=== PATIENT | female | born 1970 | race Caucasian/White ===

== ENCOUNTER 2021-04-24 20:01 | Inpatient (IN) | payer BC ==
[2021-04-24] MEDS ORDERED: Dexamethasone 10 MG/ML VIAL ONE (20:42)
[2021-04-24 20:54] LABS: #Monocytes 0.6 10x3/uL (0.0-1.1); #Neutrophils 5.7 10x3/uL (1.5-8.4); %Basophils 0.5 % (0.0-2.0); %Eosinophils 0.4 % (0.0-6.0); %Lymphocytes 14.1 % (18.0-47.0); %Monocytes 8.1 % (0.0-10.0); %Neutrophils 73.8 % (40.0-75.0); Hemoglobin 15.8 g/dL (12.0-15.5); Mean Corpuscular HGB CONC 33.3 g/dL (32.0-36.0); Mean Corpuscular Hemoglobin 30.1 pg (27.0-33.0); Mean Corpuscular Volume 90.3 fl (81.6-98.3); Mean Platelet Volume 8.8 fl (7.4-10.4); Platelet Count 459 10x3/uL (150-450); RBC Distribution Width 13.3 % (11.5-14.5); Red Blood Cell (RBC) Count 5.25 10x6/uL (3.90-5.03); White Blood Cell (WBC) Count 7.7 10x3/uL (3.5-10.5)
[2021-04-24 21:10] LABS: ALT (SGPT) 115 U/L (8-55); AST (SGOT) 89 U/L (5-34); Albumin 3.7 g/dL (3.5-5.0); Alkaline Phosphatase 205 U/L (40-110); Anion Gap 19 mmol/L (10-20); BUN (Urea Nitrogen) 7 mg/dL (9.8-20.1); Bilirubin, Total 1.2 mg/dL (0.2-1.2); Calc. Creatinine Clearance 0 mL/min (70-130); Calcium 9.1 mg/dL (7.8-10.44); Carbon Dioxide 25 mmol/L (22-29); Chloride 99 mmol/L (98-107); Glucose 146 mg/dL (70-105); Potassium 3.6 mmol/L (3.5-5.1); Protein, Total 6.7 g/dL (6.0-8.3); Sodium 139 mmol/L (136-145)
[2021-04-24] MEDS ORDERED: cefTRIAXone\\ROCEPHIN 1 GM VIAL ONE (21:11)
[2021-04-24] MEDS ORDERED: HYDROcodone/Acetaminophen 5/325 mg Tablet PO PRN (22:43)
[2021-04-24] MEDS ORDERED: Dextrose 50% Abboject 50 ML SYRINGE SLOW IVP PRN (22:43)
[2021-04-24] MEDS ORDERED: Guaifenesin DM 100-10/5 ML UDCUP PO PRN (22:43)
[2021-04-24] MEDS ORDERED: Senokot S 8.6-50 MG TAB PO PRN (22:43)
[2021-04-24] MEDS ORDERED: Dextrose 5% in Water 1,000 ML IV PRN (22:43)
[2021-04-24] MEDS ORDERED: Calcium Carbonate 500 MG ChewTAB PO PRN (22:43)
[2021-04-24] MEDS ORDERED: Ventolin HFA Inhaler 60 PUFF INHALER INH PRN (22:46)
[2021-04-25] MEDS ORDERED: Sodium Chloride 0.9% 1,000 ML IV SCH (00:15)
[2021-04-25] MEDS: HumaLOG 300 UNITS/3 ML VIAL SC PRN ×4 (00:27→21:27)
[2021-04-25] MEDS: Acetaminophen 325 MG TAB PO PRN ×3 (00:29→21:01)
[2021-04-25 00:51] VITALS: BMI 40.7
[2021-04-25] MEDS ORDERED: FLU VACC QS2021-22(6MOS UP)/PF 60 MCG/0.5 ML SYRINGE IM ONE (01:30)
[2021-04-25 05:51] LABS: Legionella Urinary Ag Negative (Negative); Strep pneumo Urine Ag NEGATIVE (NEGATIVE)
[2021-04-25 05:54] LABS: #Monocytes 0.2 10x3/uL (0.0-1.1); #Neutrophils 4.4 10x3/uL (1.5-8.4); %Basophils 0.5 % (0.0-2.0); %Lymphocytes 13.4 % (18.0-47.0); %Monocytes 2.7 % (0.0-10.0); %Neutrophils 79.6 % (40.0-75.0); Hemoglobin 14.8 g/dL (12.0-15.5); Mean Corpuscular Hemoglobin 30.2 pg (27.0-33.0); Mean Corpuscular Volume 91.6 fl (81.6-98.3); Mean Platelet Volume 8.8 fl (7.4-10.4); Platelet Count 442 10x3/uL (150-450); RBC Distribution Width 13.2 % (11.5-14.5); White Blood Cell (WBC) Count 5.5 10x3/uL (3.5-10.5)
[2021-04-25 06:05] LABS: ALT (SGPT) 107 U/L (8-55); AST (SGOT) 79 U/L (5-34); Albumin 3.3 g/dL (3.5-5.0); Alkaline Phosphatase 190 U/L (40-110); Anion Gap 19 mmol/L (10-20); BUN (Urea Nitrogen) 8 mg/dL (9.8-20.1); Bilirubin, Total 0.9 mg/dL (0.2-1.2); CRP (Inflammatory) 21.48 mg/dL (= or < 0.5); Calc. Creatinine Clearance 195 mL/min (70-130); Calcium 8.8 mg/dL (7.8-10.44); Carbon Dioxide 21 mmol/L (22-29); Chloride 103 mmol/L (98-107); Globulin 2.8 g/dL (2.4-3.5); Glucose 245 mg/dL (70-105); Potassium 3.7 mmol/L (3.5-5.1); Protein, Total 6.1 g/dL (6.0-8.3); Sodium 139 mmol/L (136-145)
[2021-04-25] MEDS: Carvedilol 3.125 MG TAB PO SCH ×2 (09:27→16:21)
[2021-04-25] MEDS: Cholecalciferol 1,000 UNITS (25 MCG) TAB PO SCH (09:27)
[2021-04-25] MEDS: Aspirin 81 mg Enteric Coated Tablet PO SCH (09:27)
[2021-04-25] MEDS: Dexamethasone 4 mg/ml Vial SLOW IVP SCH (09:27)
[2021-04-25] MEDS: Zinc Gluconate 50 MG TAB PO SCH (09:27)
[2021-04-25] MEDS: Ascorbic Acid 500 mg Chewable Tablet PO SCH (09:27)
[2021-04-25] MEDS: Benzonatate 100 MG CAP PO SCH ×3 (09:27→21:01)
[2021-04-25] MEDS: Enoxaparin Sodium 40 MG/0.4 ML SYRINGE SC SCH (09:27)
[2021-04-25] MEDS: Ondansetron PF 4 MG/2 ML Vial IVP PRN ×2 (09:28→16:21)
[2021-04-25 15:47] LABS: Hemoglobin A1c 6.4 % (4.0-6.0)
[2021-04-25] MEDS: guaiFENesin ER 600 MG TAB PO SCH (21:01)
[2021-04-26] MEDS: HumaLOG 300 UNITS/3 ML VIAL SC PRN ×3 (05:01→20:49)
[2021-04-26 05:55] LABS: Hemoglobin 13.8 g/dL (12.0-15.5); Mean Corpuscular HGB CONC 33.7 g/dL (32.0-36.0); Mean Corpuscular Hemoglobin 30.5 pg (27.0-33.0); Mean Corpuscular Volume 90.5 fl (81.6-98.3); Platelet Count 489 10x3/uL (150-450); RBC Distribution Width 13.2 % (11.5-14.5); Red Blood Cell (RBC) Count 4.52 10x6/uL (3.90-5.03); White Blood Cell (WBC) Count 11.2 10x3/uL (3.5-10.5)
[2021-04-26 06:00] LABS: ALT (SGPT) 91 U/L (8-55); AST (SGOT) 47 U/L (5-34); Albumin 3.1 g/dL (3.5-5.0); Alkaline Phosphatase 180 U/L (40-110); Anion Gap 17 mmol/L (10-20); BUN (Urea Nitrogen) 12 mg/dL (9.8-20.1); Bilirubin, Total 0.7 mg/dL (0.2-1.2); CRP (Inflammatory) 13.14 mg/dL (= or < 0.5); Calc. Creatinine Clearance 172 mL/min (70-130); Calcium 8.7 mg/dL (7.8-10.44); Carbon Dioxide 22 mmol/L (22-29); Chloride 102 mmol/L (98-107); Globulin 2.6 g/dL (2.4-3.5); Glucose 307 mg/dL (70-105); Potassium 3.8 mmol/L (3.5-5.1); Protein, Total 5.7 g/dL (6.0-8.3); Sodium 137 mmol/L (136-145)
[2021-04-26] MEDS: Benzonatate 100 MG CAP PO SCH ×3 (08:22→20:26)
[2021-04-26] MEDS: Zinc Gluconate 50 MG TAB PO SCH (08:22)
[2021-04-26] MEDS: Enoxaparin Sodium 40 MG/0.4 ML SYRINGE SC SCH (08:22)
[2021-04-26] MEDS: Ascorbic Acid 500 mg Chewable Tablet PO SCH (08:22)
[2021-04-26] MEDS: Acetaminophen 325 MG TAB PO PRN ×3 (08:22→23:02)
[2021-04-26] MEDS: Aspirin 81 mg Enteric Coated Tablet PO SCH (08:22)
[2021-04-26] MEDS: guaiFENesin ER 600 MG TAB PO SCH ×2 (08:22→20:26)
[2021-04-26] MEDS: Dexamethasone 4 mg/ml Vial SLOW IVP SCH (08:22)
[2021-04-26] MEDS: Cholecalciferol 1,000 UNITS (25 MCG) TAB PO SCH (08:22)
[2021-04-26] MEDS: Carvedilol 3.125 MG TAB PO SCH ×2 (08:22→17:03)
[2021-04-26] MEDS: Zolpidem Tartrate 5 MG TAB PO PRN (20:50)
[2021-04-27 06:42] LABS: ALT (SGPT) 74 U/L (8-55); AST (SGOT) 30 U/L (5-34); Albumin 3.1 g/dL (3.5-5.0); Alkaline Phosphatase 156 U/L (40-110); Anion Gap 16 mmol/L (10-20); BUN (Urea Nitrogen) 12 mg/dL (9.8-20.1); Bilirubin, Total 0.6 mg/dL (0.2-1.2); Calc. Creatinine Clearance 182 mL/min (70-130); Calcium 8.8 mg/dL (7.8-10.44); Carbon Dioxide 25 mmol/L (22-29); Chloride 106 mmol/L (98-107); Globulin 2.4 g/dL (2.4-3.5); Glucose 167 mg/dL (70-105); Potassium 3.9 mmol/L (3.5-5.1); Protein, Total 5.5 g/dL (6.0-8.3); Sodium 143 mmol/L (136-145)
[2021-04-27] MEDS: Enoxaparin Sodium 40 MG/0.4 ML SYRINGE SC SCH (07:52)
[2021-04-27] MEDS: Dexamethasone 4 mg/ml Vial SLOW IVP SCH (07:52)
[2021-04-27] MEDS: Ascorbic Acid 500 mg Chewable Tablet PO SCH (07:53)
[2021-04-27] MEDS: Cholecalciferol 1,000 UNITS (25 MCG) TAB PO SCH (07:53)
[2021-04-27] MEDS: Carvedilol 3.125 MG TAB PO SCH ×3 (07:53→18:01)
[2021-04-27] MEDS: Zinc Gluconate 50 MG TAB PO SCH (07:53)
[2021-04-27] MEDS: Benzonatate 100 MG CAP PO SCH ×3 (07:53→20:21)
[2021-04-27] MEDS: guaiFENesin ER 600 MG TAB PO SCH ×2 (07:54→20:21)
[2021-04-27] MEDS: Aspirin 81 mg Enteric Coated Tablet PO SCH (07:54)
[2021-04-27] MEDS: Acetaminophen 325 MG TAB PO PRN ×2 (12:45→20:21)
[2021-04-27] MEDS: HumaLOG 300 UNITS/3 ML VIAL SC PRN ×2 (17:30→21:01)
[2021-04-27 18:17] LABS: ALT (SGPT) 93 U/L (8-55); AST (SGOT) 59 U/L (5-34); Albumin 3.3 g/dL (3.5-5.0); Alkaline Phosphatase 167 U/L (40-110); Anion Gap 18 mmol/L (10-20); BUN (Urea Nitrogen) 13 mg/dL (9.8-20.1); Bilirubin, Total 0.7 mg/dL (0.2-1.2); Calc. Creatinine Clearance 164 mL/min (70-130); Calcium 8.8 mg/dL (7.8-10.44); Carbon Dioxide 22 mmol/L (22-29); Chloride 103 mmol/L (98-107); Globulin 2.8 g/dL (2.4-3.5); Glucose 249 mg/dL (70-105); Potassium 4.6 mmol/L (3.5-5.1); Protein, Total 6.1 g/dL (6.0-8.3); Sodium 138 mmol/L (136-145)
[2021-04-27] MEDS: Zolpidem Tartrate 5 MG TAB PO PRN (20:21)
[2021-04-28] MEDS: Dexamethasone 4 mg/ml Vial SLOW IVP SCH (09:09)
[2021-04-28] MEDS: Benzonatate 100 MG CAP PO SCH ×2 (09:09→16:31)
[2021-04-28] MEDS: Cholecalciferol 1,000 UNITS (25 MCG) TAB PO SCH (09:09)
[2021-04-28] MEDS: Zinc Gluconate 50 MG TAB PO SCH (09:09)
[2021-04-28] MEDS: Aspirin 81 mg Enteric Coated Tablet PO SCH (09:09)
[2021-04-28] MEDS: guaiFENesin ER 600 MG TAB PO SCH (09:09)
[2021-04-28] MEDS: Enoxaparin Sodium 40 MG/0.4 ML SYRINGE SC SCH (09:09)
[2021-04-28] MEDS: Ascorbic Acid 500 mg Chewable Tablet PO SCH (09:09)
[2021-04-28] MEDS: Carvedilol 3.125 MG TAB PO SCH ×2 (09:11→16:31)
[2021-04-28 09:59] VITALS: TEMP 98.1
[2021-04-28] MEDS: HumaLOG 300 UNITS/3 ML VIAL SC PRN (12:30)
[2021-04-28 15:58] VITALS: BP 130/83
== END 2021-04-28 17:38 | disposition home or self-care (01) | DRG 177 ==
LOC: CSHERS 20:01 → CSHTELE 23:44
PROVIDERS: ADMIT Student in an Organized Health Care Education/Training Program; ATTEND Internal Medicine
PROC: 8E0ZXY6 Isolation (ICD-10-PCS; principal; 2021-04-24)
DX: U07.1 COVID-19 (principal); J12.82 Pneumonia due to coronavirus disease 2019; J96.01 Acute respiratory failure with hypoxia; R65.10 Systemic inflammatory response syndrome (SIRS) of non-infectious origin without acute organ dysfunction; R73.03 Prediabetes; Z87.891 Personal history of nicotine dependence; I10 Essential (primary) hypertension; Z91.19 Patient's noncompliance with other medical treatment and regimen; E04.2 Nontoxic multinodular goiter; Z91.018 Allergy to other foods
CPT/HCPCS: 36416; 71045; 71275; 76536; 80053; 82728; 83036; 84145; 84484; 85025; 85027; 85379; 86140; 87040; 87449; 87899; 93005; 94760; 96365; 96375; J0696; J1100; J1650; J1815; J2405; J7050